=== PATIENT | female | born 1985 | race American Indian/Alaskan Native ===

== ENCOUNTER 2016-09-17 17:14 | Emergency (ER) | payer SELFPAY | END 2016-09-17 17:15 | disposition left against medical advice (07) | LOC: ED 17:14 | DX: M79.605 Pain in left leg (principal); Z53.21 Procedure and treatment not carried out due to patient leaving prior to being seen by health care provider ==

== ENCOUNTER 2018-08-06 15:26 | Emergency (ER) | payer SELFPAY ==
--- NOTE | 2018-08-06 16:13 | Emergency Department Report ---
Blank Doc - Documentation Documentation: This is a 32-year-old female that presents with SOB. Stated PCP sent patient to the ED for low blood pressure. Also stated has some chest pain. This initial assessment/diagnostic orders/clinical plan/treatment(s) is/are subject to change based on patient's health status, clinical progression and re- assessment by fellow clinical providers in the ED. Further treatment and workup at subsequent clinical providers discretion. Patient/guardians urged not to elope from the ED as their condition may be serious if not clinically assessed and managed. Initial orders include: 1- Patient sent to MAIN ED for further evaluation and treatment 2- EKG 4- CXR 5- labs
[2018-08-06 16:15] VITALS: BP 115/83
== END 2018-08-06 19:45 | disposition left against medical advice (07) ==
LOC: ED 15:26
DX: M54.5 Low back pain (principal); Z53.21 Procedure and treatment not carried out due to patient leaving prior to being seen by health care provider